=== PATIENT | male | born 1955 | race Caucasian/White ===

== ENCOUNTER → 2017-02-26 | Outpatient (CLI) | payer BC ==
[~2017-02-26] MED LIST: ACET-1256 PO; ACET-24 PO; ASPEC325 PO; IBUP-1050 PO; RXC5 PO
== END | disposition home or self-care (01) ==
LOC: C.LAB1850 08:08
PROVIDERS: ATTEND Urology
DX: Z00.00 Encounter for general adult medical examination without abnormal findings (principal); R97.20 Elevated prostate specific antigen [PSA]

== ENCOUNTER 2017-05-26 06:25 | Inpatient (IN) | payer BC ==
--- NOTE | 2017-05-11 10:54 | PAT Medication Instructions ---
Service Date May 11, 2017. Current Home Medication List Acetaminophen (Tylenol), 1-2 TAB PO Q8 PRN for Pain Ibuprofen (Advil), 400 MG PO Q8 PRN for Pain Medication Instructions For Your Scheduled Surgery - Hold the following medications 10 days prior to surgery per surgeon's instructions: Ibuprofen (Advil), 400 MG PO Q8 PRN for Pain - Take the following medications (if needed) the morning of surgery with a tiny sip of water: Acetaminophen (Tylenol), 1-2 TAB PO Q8 PRN for Pain (may take if needed up to 4 hours prior to surgery) If you have any questions please call us at [phone] or [phone] or [phone]
--- NOTE | 2017-05-11 11:51 | DIAGNOSTIC IMAGING REPORT ---
CHEST 2 VIEWS ROUTINE HISTORY: 61 years-old Male preoperative exam. No acute complaints COMPARISON: None available TECHNIQUE: Frontal and lateral views of the chest FINDINGS: Cardiomediastinal and hilar silhouettes are within normal limits. No pneumothorax, pleural effusion or focal airspace consolidation. There is no overt pulmonary edema. Bones are grossly intact. Cholecystectomy clips are noted. IMPRESSION: No acute cardiopulmonary process. The above report was generated using voice recognition software. It may contain grammatical, syntax or spelling errors. Electronically signed by: Guzman Vasquez M.D. 05/11/2017 11:49 AM Dictated Date/Time: 05/11/2017 11:49 AM
[2017-05-11 12:04] LABS: BASO % 0.2 %; BASO ABS # 0.01 K/uL (0-0.2); COMPLETE YES; EOS % 3.3 %; HEMATOCRIT 40.8 % (42-52); LYMPH % 45.8 %; LYMPH ABS # 1.96 K/uL (1.2-3.4); MEAN CELL VOLUME 91.3 fL (80-100); MEAN CORPUSCULAR HEMOGLOBIN 30.2 pg (25-34); MEAN CORPUSCULAR HGB CONC 33.1 g/dl (32-36); MONO % 13.1 %; NEUT % 37.6 %; PLATELET COUNT 190 K/uL (130-400); RED BLOOD COUNT 4.47 M/uL (4.7-6.1); WHITE BLOOD COUNT 4.28 K/uL (4.8-10.8)
[2017-05-11 12:18] LABS: PROTHROMBIN TIME (PATIENT) 10.2 SECONDS (9.0-12.0)
[2017-05-11 12:38] LABS: BUN/CREATININE RATIO 16.1 (10-20); CALCIUM 9.5 mg/dl (8.5-10.1); CREATININE 1.1 mg/dl (0.60-1.40); POTASSIUM 4.5 mmol/L (3.5-5.1)
--- NOTE | 2017-05-18 18:24 | HISTORY & PHYSICAL EXAMINATION ---
DATE OF ADMISSION: 05/26/2017 CHIEF COMPLAINT: Left hip pain. HISTORY OF PRESENT ILLNESS: The patient is a 61-year-old gentleman who presents for surgical treatment of his left hip. He has got a 5+ year history of increasing left hip pain and discomfort which has gradually gotten worse over time. He continues to try and maintain a high activity level, but having more and more trouble doing this. He has trouble with any prolonged walking. He describes mostly groin and thigh pain. He has difficulty putting his shoes and socks on. He would like to have his hip replaced. PAST MEDICAL HISTORY: Significant for: 1. Prostate biopsy which was negative. 2. Arthritis. PAST SURGICAL HISTORY: Include cholecystectomy. ALLERGIES: None. CURRENT MEDICATIONS: Include intermittent anti-inflammatories. SOCIAL HISTORY: Shows a 61-year-old male. He is . One to 2 drink per week. Fairly active. Does a lot of labor work. FAMILY HISTORY: Noncontributory. REVIEW OF SYSTEMS: Negative for diabetes, neurologic problems, vascular problems, bleeding disorders. Denies any chest pain, no shortness of breath. No history of DVT or PE. PHYSICAL EXAMINATION: GENERAL: Reveals a healthy, pleasant, middle-aged male. He looks to be in good health. HEENT: Benign. NECK: Supple. No lymphadenopathy. LUNGS: Clear to auscultation. HEART: Regular rate and rhythm. ABDOMEN: Soft, nontender, nondistended. EXTREMITIES: Grossly neurovascularly intact except as follows: Examination of left hip and leg reveals the patient walks with a slightly antalgic gait. He has got a very stiff hip. Internal rotation to neutral, external rotation to 20 degrees. He has got moderate pain with hip motion. No knee effusion. Negative straight leg raise. He is neurologically intact. X-RAYS: X-rays of the left hip were reviewed. It shows advanced left hip DJD. He has got complete loss of his joint space. He has got fairly large medial osteophyte. ASSESSMENT: A 61-year-old male with advanced left hip degenerative joint disease. It is becoming less responsive to conservative treatment affecting his quality of life, and he would like to have his left hip placed. PLAN: We are going to take him to the operating room and do a left total hip replacement. The risks and benefits of this procedure were explained to the patient including but not limited to DVT, PE, , infection, neurological injury, vascular injury, bleeding problems, pain, limited range of motion, stiffness, failure to relieve his symptoms, incomplete relief of symptoms, need for further surgery in the future, fracture, leg length inequality, nerve palsy, dislocation, need for revision surgery, etc. The patient understands and desires to proceed and informed consent was obtained. As far as discharge plans, he is going to be discharged home using [facility] home health program. He knows to hold his NSAIDs 10 days preop. COLLINS
[~2017-05-26] VITALS: Ht 177.8 cm; Wt 94.0 kg
[2017-05-26] VITALS (14 sets, daily range): BP systolic 108–132; BP diastolic 63–86; PULSE 57–88; TEMP 36–37; O2SAT 95–100; Ht 177.8 cm; Wt 94.0 kg
[~2017-05-26 06:25] MED LIST changes: -ACET-24 PO; +ACETAMINOPHEN 500 MG TAB PO SCH; -ASPEC325 PO; +CEFAZOLIN 2000 MG/60 ML D5W 60 ML IV SCH; +FAMOTIDINE 20 MG TAB PO SCH; +GABAPENTIN 300 MG CAP PO SCH; +LACTATED RINGER'S 1000ML 1,000 ML IV SCH; +LACTATED RINGER'S 1000ML 500 ML IV ONE; +LACTATED RINGER'S 1000ML IV SCH; +METOCLOPRAMIDE HCL 10 MG TAB PO SCH; -RXC5 PO; +SCOPOLAMINE 1.5 MG TDSY TD SCH; +TRANEXAMIC ACID INJ 1,000 MG in SODIUM CHLORIDE 0.9% 100ML 100 ML IV SCH
[2017-05-26] MEDS ORDERED: BUPIVACAINE 0.5 % 5 MG/1 ML PF 10ML VIAL ONE (06:31)
--- NOTE | 2017-05-26 06:48 | History & Physical Bridge Note ---
H&P Re-Evaluation Bridge Note: I have examined the patient, reviewed the History & Physical and in the interval since the performance of the History & Physical I have noted the following changes of clinical significance: No changes noted
[2017-05-26] MEDS ORDERED: MoRPHine SULFATE PF 1 MG/ML 10 ML AMP/VIAL ONE (08:00)
[2017-05-26] MEDS ORDERED: MIDAZOLAM HCL 1 MG/ML 2ML VIAL ONE ×2 (08:00→09:05)
[2017-05-26] MEDS ORDERED: BACITRACIN 50000 UNIT VIAL ONE (08:36)
[2017-05-26] MEDS ORDERED: BUPIVACAINE/EPINEPHRINE 0.5% MPF 1:200,000 10 ML VIAL ONE ×2 (08:36)
[2017-05-26] MEDS ORDERED: SODIUM CHLORIDE 0.9% 1000ML 1,000 ML IV PRN (08:51)
[2017-05-26] MEDS ORDERED: NALOXONE HCL INJ 0.08 MG in SYRINGE 1.8 ML IV PRN (08:51)
[2017-05-26] MEDS ORDERED: NALOXONE HCL INJ 1 MG in SODIUM CHLORIDE 0.9% 1000ML 1,000 ML IV PRN (08:51)
[2017-05-26] MEDS ORDERED: LACTATED RINGER'S 1000ML 500 ML IV PRN (08:51)
[2017-05-26] MEDS ORDERED: PHENYLEPHRINE 100MCG/ML 5ML SYR IV PRN (09:00)
[2017-05-26] MEDS ORDERED: DiphenhydrAMINE HCL 50 MG/ML VIAL IV PRN (09:00)
[2017-05-26] MEDS ORDERED: MoRPHine SULFATE 2 MG/ML CARP IV PRN (09:00)
[2017-05-26] MEDS ORDERED: EpHEDrine SULFATE INJ 50 MG/ML AMP IV PRN ×2 (09:00)
[2017-05-26] MEDS ORDERED: MoRPHine SULFATE PF 1 MG/ML 10 ML AMP/VIAL EPI PRN (09:00)
[2017-05-26] MEDS ORDERED: MEPERIDINE HCL 25 MG/ML CARP IV PRN ×2 (09:00)
[2017-05-26] MEDS ORDERED: FLUMAZENIL 0.1 MG/1 ML 10 ML VIAL IV PRN (09:00)
[2017-05-26] MEDS ORDERED: NALOXONE HCL 0.4 MG/1 ML VIAL/CARP IV PRN ×2 (09:00)
[2017-05-26] MEDS ORDERED: KETOROLAC TROMETHAMINE 30 MG/ML VIAL IV. PRN (09:00)
[2017-05-26] MEDS ORDERED: NALBUPHINE HCL INJ 10 MG/ML AMP IV PRN (09:00)
[2017-05-26] MEDS ORDERED: HYDROmorphone INJ 2 MG/ML SYR/VIAL IV PRN (09:00)
[2017-05-26] MEDS ORDERED: LABETALOL HCL IV 5 MG/ML 20ML IV PRN (09:00)
[2017-05-26] MEDS ORDERED: ONDANSETRON INJ 2 MG/ML 2 ML VIAL IV PRN ×2 (09:00)
[2017-05-26] MEDS ORDERED: ATROPINE SULFATE 0.1 MG/ML 5ML SYR IV PRN (09:00)
[2017-05-26] MEDS ORDERED: FENTANYL CITRATE INJ 50 MCG/1 ML 2 ML VIAL IV PRN (09:00)
[2017-05-26] MEDS ORDERED: DiphenhydrAMINE HCL 50 MG/ML VIAL ONE (09:05)
[2017-05-26] MEDS ORDERED: PHENYLEPHRINE 100MCG/ML 5ML SYR ONE (09:22)
[2017-05-26] MEDS ORDERED: ONDANSETRON INJ 2 MG/ML 2 ML VIAL ONE (09:22)
[2017-05-26] MEDS ORDERED: PROPOFOL IV EMULSION 10 MG/ML 20 ML VIAL IV ONE ×2 (09:22→10:03)
[2017-05-26] MEDS ORDERED: LIDOCAINE HCL 2% 2 ML VIAL (20MG/ML) ONE (09:22)
[2017-05-26] MEDS ORDERED: EpHEDrine SULFATE INJ 50 MG/ML AMP ONE (09:29)
--- NOTE | 2017-05-26 10:29 | [facility] Post Operative Brief Note ---
Immediate Operative Summary Operative Date May 26, 2017. Pre-Operative Diagnosis Advanced Left Hip Degenerative Joint Disease Post-Operative Diagnosis Advanced Left Hip Degenerative Joint Disease Procedure(s) Performed Left Total Hip Arthroplasty--Uncemented Surgeon Dr. Grissom [employer] Editor Surgeon(s) ERIKA Jones Estimated Blood Loss 250 ml Findings Left Hip DJD Fluids (cc crystalloids) 1700 cc Specimens A. Left Femoral Head Drains None Anesthesia Spinal Complication(s) None Disposition Recovery Room / PACU
[2017-05-26] MEDS ORDERED: BISACODYL 10 MG SUPP PR PRN (10:30)
[2017-05-26] MEDS ORDERED: MAGNESIUM HYDROXIDE SUSP 30 ML UDC PO PRN (10:30)
[2017-05-26] MEDS ORDERED: SILVER SULFADIAZINE 1% CR 50 GM JAR EXT PRN (10:30)
[2017-05-26] MEDS ORDERED: TAMSULOSIN HCL 0.4 MG CAP PO PRN (10:30)
[2017-05-26] MEDS ORDERED: ZOLPIDEM TARTRATE 5 MG TAB PO PRN (10:30)
[2017-05-26] MEDS ORDERED: ALUMINUM/MAGNESIUM/SIMETH (MAALOX MAX) 30 ML UDC PO PRN (10:30)
[2017-05-26] MEDS ORDERED: METOCLOPRAMIDE HCL INJ 5 MG/ML 2 ML VIAL IV PRN (10:30)
--- NOTE | 2017-05-26 10:58 | OPERATIVE REPORT ---
DATE OF OPERATION: 05/26/2017 PREOPERATIVE DIAGNOSIS: Left hip degenerative joint disease. POSTOPERATIVE DIAGNOSIS: Same. PROCEDURE PERFORMED: Left uncemented ceramic on highly cross-linked polyethylene total hip arthroplasty. SURGEON: Johann Grissom M.D. BODY DESIGNER: Sonny Ramirez PA-C. COMPLICATIONS: None. ESTIMATED BLOOD LOSS: 250 mL. FLUID REPLACEMENT: 1700 mL crystalloid fluid replacement. ANESTHESIA: Spinal. DRAINS: None. SPECIMENS: Left femoral head sent for pathology. OPERATIVE INDICATIONS: The patient is a 61-year-old very active gentleman who has had a 5-year history of increasing left hip pain and discomfort that has gotten significantly worse over the past 6 months or so. He had failed conservative treatment. X-rays show advanced left hip DJD. He elected to proceed with operative treatment. OPERATIVE FINDINGS: Operative findings revealed advanced left hip DJD. He had grade 4 [id number] disease of the femoral head and acetabulum. Not a lot of osteophytes around the acetabulum. There was a fairly large medial osteophyte. Small hip joint effusion, some moderate synovitis. OPERATIVE IMPLANTS: Operative implants consisted of: 1. Biomet G7 size 56 mm acetabular shell. 2. A 6.5 cancellous acetabular screws, 1 at 35 mm length and 1 at 25 mm in length. 3. An apex hole eliminator. 4. A Biomet vitamin E enriched highly cross-linked polyethylene liner with a 56 mm outer diameter, 36 mm inner diameter. 5. A DePuy size 13.5 large stature AML femoral stem and with a standard offset. 6. A +5/36 mm ceramic articular ball. OPERATIVE PROCEDURE: The patient taken to the operating room, identified and placed on the operating table in supine position. All contact areas were appropriately padded. IV antibiotics were provided by the anesthesia team. A spinal anesthetic had been implemented in the holding area. Welsh catheter was placed in sterile fashion. The patient placed in the right lateral decubitus position. An axillary roll was placed. Stlberg hip positioner was used for positioning. All contact areas were meticulously padded and the left hip and leg were then prepped and draped in the usual sterile fashion. A posterolateral approach to the left hip was then performed through a curvilinear incision centered over the greater trochanter. Sharp dissection was carried down through the subcutaneous tissues down to the level of the IT band and gluteal fascia. The IT band and gluteal fascia were incised longitudinally in line with skin incision. The underlying greater trochanteric bursa was excised. The piriformis and external rotators were tagged and taken off the posterior aspect of the femur and the femoral head joint capsule. Great care was taken throughout the procedure to protect the sciatic nerve at all times. Posterior capsulotomy was then performed leaving a large flap for later repair. Hip was internally rotated and dislocated. Femoral neck osteotomy cut was made with the final cut 12 mm above the lesser trochanter. Femoral head was removed and sent for pathology. The femur was retracted anteriorly. Attention was then drawn to the acetabulum. The acetabular labrum was excised. The pulvinar fat was excised. Sequential reaming of the acetabulum was then performed beginning with a size 47 and progressing up to 55. A 56 mm Biomet G7 acetabular shell was then placed in about 40 degrees of lateral opening and 20 degrees of anteversion. It was fixed with two 6.5 cancellous acetabular screws. A trial liner was placed. Attention was then drawn to the femur. The proximal femur was entered with a cookie cutter followed by canal finder and lateralizing reamer. Sequential reaming of the femur was then performed beginning with a size 10 and progressing up to a 13. We got pretty good chatter at 13. I broached beginning with a size 10.5 small broach and progressing up to 13.5 large. We got excellent metaphyseal fit. Calcar reamer was used to smoothen off the calcar. We trialed the hip and the +5 articular ball provided full stability and full extension and external rotation and flexion to 90 degrees, internal rotation to over 60 degrees. Leg lengths appeared appropriately. Attention was then drawn toward placement of permanent components. All trial components were removed. The wound was irrigated extensively. An apex hole eliminator was placed. I placed initially a highly cross-linked polyethylene liner, but would not sit quite in and there was some soft tissue impinged and I could not get it to sit right and I felt like I damaged the locking mechanism. Therefore, we got out a vitamin E enriched highly cross-linked polyethylene liner. I made sure all surfaces were completely perfectly exposed and impacted this without difficulty. It sat down nicely. A 13.5 large stature femoral stem was then impacted. A +5/36 mm articular ball was placed. Hip was located and once again found to be stable. Attention was then drawn toward closing. The wound was irrigated with copious amounts of pulsatile lavage solution. I did inject locally with 60 mL of 0.5% Marcaine with epinephrine. The posterior capsule and external rotators were repaired through drill holes in the posterior trochanter with #2 Ti-Cron suture. The IT band and gluteal fascia were then closed with #1 PDS suture in a running fashion with a PDS suture. The subcutaneous tissues closed with 2 layers, the deep layer #1 Vicryl sutures, subcutaneous tissue with 2-0 Dexon suture in a buried interrupted fashion. Skin was closed skin unique. Leg was then cleaned and dried and a sterile dressing of Xeroform, 4 x 4's, sterile ABD pad and foam tape was applied. The patient then transferred to the recovery room in stable condition. The patient tolerated the procedure with no complications. All needle and sponge counts were correct at the end of the operation. I attest to the content of the Intraoperative Record and any orders documented therein. Any exception s are noted below.
--- NOTE | 2017-05-26 11:04 | DIAGNOSTIC IMAGING REPORT ---
LEFT PELVIS/UNILATERAL HIP 1 VIEW CLINICAL HISTORY: 61 years-old Male presenting with left degenerative joint disease. TECHNIQUE: Frontal view of the pelvis and frontal and crosstable lateral views of the left hip were obtained. COMPARISON: 02/19/2017. FINDINGS: Interval total left hip arthroplasty. Intra-articular and soft tissue emphysema with overlying skin unique noted. No acute fracture or hardware convocation. Surgical clip projects over the pelvis. Multiple pelvic phleboliths. IMPRESSION: Expected postsurgical changes status post total left hip arthroplasty. Electronically signed by: David Mulligan M.D. 05/26/2017 11:03 AM Dictated Date/Time: 05/26/2017 11:02 AM
--- NOTE | 2017-05-26 11:26 | Anesthesiology Progress Note ---
Anesthesia Post Op Note Date & Time May 26, 2017 at 11:25 Vital Signs Pain Intensity: 0 Vital Signs Past 12 Hours Date Time Temp Pulse Resp B/P (MAP) Pulse Ox O2 Delivery O2 Flow Rate FiO2 05/26/17 11:05 36.7 72 16 132/78 100 Nasal Cannula 2 05/26/17 10:55 76 16 127/71 100 Nasal Cannula 2 05/26/17 10:45 77 16 117/68 100 Oxymask 10 05/26/17 10:35 79 16 124/66 100 Oxymask 10 05/26/17 10:29 36.4 78 16 114/64 100 Oxymask 10 05/26/17 06:35 36.5 68 20 128/86 98 Room Air Notes Mental Status: alert / awake / arousable, participated in evaluation Pt Amnestic to Procedure: Yes Nausea / Vomiting: adequately controlled Pain: adequately controlled Airway Patency, RR, SpO2: stable & adequate BP & HR: stable & adequate Hydration State: stable & adequate Neuraxial Anesthesia: was administered, sensory block is resolving Anesthetic Complications: no major complications apparent
[2017-05-26] MEDS: FERROUS GLUCONATE 324 MG TAB PO SCH ×2 (12:30→17:54)
[2017-05-26] MEDS: D5W AND 1/2NSS + 20MEQ KCL 1,000 ML IV SCH ×2 (12:37→19:59)
[2017-05-26] MEDS: KETOROLAC TROMETHAMINE 30 MG/ML VIAL IV. SCH ×2 (13:44→19:59)
[2017-05-26] MEDS: ACETAMINOPHEN 500 MG TAB PO SCH ×2 (13:44→21:53)
[2017-05-26] MEDS: CHECK SCOPOLAMINE PATCH PLACEMENT SCH ×2 (15:48→23:35)
[2017-05-26] MEDS: CEFAZOLIN IV 2,000 MG in DEXTROSE 5% 50ML 50 ML IV SCH (17:06)
[2017-05-26] MEDS ORDERED: TRANEXAMIC ACID INJ 1,000 MG in SODIUM CHLORIDE 0.9% 100ML 100 ML IV ONE (18:00)
[2017-05-26] MEDS: DOCUSATE SODIUM 100 MG CAP PO SCH (21:51)
[2017-05-26] MEDS: ASPIRIN 325 MG ECTAB PO SCH (21:51)
[2017-05-26] MEDS: SENNA 8.6 MG TAB PO SCH (21:51)
[2017-05-27] VITALS (8 sets, daily range): BP systolic 102–131; BP diastolic 61–74; PULSE 73–95; TEMP 36.7–37.3; O2SAT 94–97
[2017-05-27] MEDS: CEFAZOLIN IV 2,000 MG in DEXTROSE 5% 50ML 50 ML IV SCH (01:34)
[2017-05-27] MEDS: KETOROLAC TROMETHAMINE 30 MG/ML VIAL IV. SCH ×4 (01:34→20:40)
[2017-05-27] MEDS ORDERED: MoRPHine SULFATE 2 MG/ML CARP IV PRN (02:45)
[2017-05-27] MEDS ORDERED: NO NARCOTICS OR SEDATIVES SCH (02:45)
[2017-05-27] MEDS ORDERED: DC INTRASPINAL MORPHINE SCH (02:45)
[2017-05-27] MEDS ORDERED: DiphenhydrAMINE HCL 50 MG/ML VIAL IV PRN (02:45)
[2017-05-27] MEDS ORDERED: ONDANSETRON INJ 2 MG/ML 2 ML VIAL IV PRN (02:45)
[2017-05-27] MEDS ORDERED: OXYCODONE HCL IR 5 MG TAB (IMMEDIATE RELEASE) PO PRN (02:45)
[2017-05-27] MEDS ORDERED: ZOLPIDEM TARTRATE 5 MG TAB PO PRN (02:45)
[2017-05-27] MEDS: D5W AND 1/2NSS + 20MEQ KCL 1,000 ML IV SCH (04:29)
[2017-05-27] MEDS: ACETAMINOPHEN 500 MG TAB PO SCH ×3 (05:32→22:15)
[2017-05-27 05:35] LABS: BASO % 0.2 %; BASO ABS # 0.01 K/uL (0-0.2); COMPLETE YES; EOS % 1.8 %; HEMATOCRIT 35.3 % (42-52); IG% 0.2 %; LYMPH ABS # 1.54 K/uL (1.2-3.4); MEAN CELL VOLUME 91.7 fL (80-100); MEAN CORPUSCULAR HEMOGLOBIN 29.4 pg (25-34); MEAN PLATELET VOLUME 10.9 fL (7.4-10.4); MONO % 11.7 %; NEUT % 61.1 %; PLATELET COUNT 177 K/uL (130-400); RED BLOOD COUNT 3.85 M/uL (4.7-6.1); WHITE BLOOD COUNT 6.16 K/uL (4.8-10.8)
[2017-05-27 06:16] LABS: CALCIUM 8.1 mg/dl (8.5-10.1); POTASSIUM 3.8 mmol/L (3.5-5.1)
--- NOTE | 2017-05-27 07:58 | Anesthesiology Progress Note ---
Anesthesia Post Op Note Date & Time May 27, 2017 at 07:57 Vital Signs Pain Intensity: 0.0 Vital Signs Past 12 Hours Date Time Temp Pulse Resp B/P (MAP) Pulse Ox O2 Delivery O2 Flow Rate FiO2 05/27/17 07:20 36.7 73 16 102/61 (75) 94 Room Air 05/27/17 07:00 Room Air 05/27/17 03:30 17 96 05/27/17 03:08 37.3 85 16 109/66 (80) 94 Room Air 05/27/17 02:30 16 96 05/27/17 01:30 16 97 05/27/17 00:30 17 96 05/26/17 23:45 Room Air 05/26/17 23:45 16 99 05/26/17 23:16 37.0 84 16 108/63 (78) 99 Room Air 05/26/17 22:32 18 96 Notes Mental Status: alert / awake / arousable, participated in evaluation Pt Amnestic to Procedure: Yes Nausea / Vomiting: adequately controlled Pain: adequately controlled Airway Patency, RR, SpO2: stable & adequate BP & HR: stable & adequate Hydration State: stable & adequate Neuraxial Anesthesia: was administered, sensory block resolved Anesthetic Complications: no major complications apparent
[2017-05-27] MEDS: CHECK SCOPOLAMINE PATCH PLACEMENT SCH ×2 (08:06→15:36)
[2017-05-27] MEDS: DOCUSATE SODIUM 100 MG CAP PO SCH ×2 (08:26→20:41)
[2017-05-27] MEDS: MULTIVITAMIN TAB PO SCH (08:26)
[2017-05-27] MEDS: TAPENTADOL ER 50 MG TABCR PO SCH ×2 (08:26→20:40)
[2017-05-27] MEDS: FERROUS GLUCONATE 324 MG TAB PO SCH ×3 (08:26→17:45)
[2017-05-27] MEDS: PANTOprazole SOD 40 MG TAB PO SCH (08:26)
[2017-05-27] MEDS: ASPIRIN 325 MG ECTAB PO SCH ×2 (08:26→20:40)
--- NOTE | 2017-05-27 14:58 | PROGRESS NOTE ---
DATE: 05/27/2017 SUBJECTIVE: A 61-year-old gentleman postop day #1 from a left total hip replacement. He is doing well. Really not have much pain at all. Therapy went pretty well. Denies any chest pain or shortness of breath. Not feeling dizzy or lightheaded. OBJECTIVE: VITAL SIGNS: Temperature is 36.7. Vital signs stable. GENERAL: Physical examination reveals a pleasant, middle-aged male. He is sitting up in bed and looks pretty comfortable. EXTREMITIES: Examination of the left leg reveals the leg to be well aligned. His hip is located. Leg lengths are equal. He can dorsiflex and plantarflex his foot appropriately. He is neurologically intact. LABORATORY DATA: Hemoglobin 11.3. Hematocrit 35.3. Electrolytes are stable. ASSESSMENT: A 61-year-old gentleman postop day #1 from left total hip replacement, doing well. Hip is located. His pain is controlled. He is neurologically intact. PLAN: 1. DVT prophylaxis including thigh-high TEDs, SCDs, and aspirin twice a day. 2. PT/OT. Weight bear as tolerated. Left total hip protocol. 3. Pain control, doing pretty well with current pain regimen. Really has minimal pain. 4. Disposition: Plan to be discharged to home with home health once adequately recovered.
[2017-05-27] MEDS: SENNA 8.6 MG TAB PO SCH (20:41)
[2017-05-27] MEDS ORDERED: ACET-24 PO (20:51)
[2017-05-27] MEDS ORDERED: ASPEC325 PO (20:51)
[2017-05-27] MEDS ORDERED: RXC5 PO (20:51)
--- NOTE | 2017-05-27 20:54 | Discharge Instructions ---
Discharge Instructions Date of Service May 27, 2017. Admission Reason for Admission: Left Hip Degenerative Joint Disease Discharge Discharge Diagnosis / Problem: Left Hip Replacement Discharge Goals Goal(s): Decrease discomfort, Improve function, Increase independence, Improve disease control, Therapeutic intervention Activity Recommendations Activity Limitations: per Instructions/Follow-up section (Total Hip Precautions ) Weightbearing Status: Left weightbearing . Instructions / Follow-Up Instructions / Follow-Up ACTIVITY RECOMMENDATIONS: Physical Therapy: * Aggressive physical therapy is not usually needed. You will learn to take care of yourself safely and walk. * Follow the "Hip Precautions Instructions." * In some cases, the social insurance specialist at the hospital will arrange to have a therapist come to your house for the first couple of weeks to help you learn these skills. * You need to practice on your own or with the help of a family member as needed. * When you learn these skills, most of the therapy can be done on your own. Home Exercise: * You were shown a series of exercises in the hospital. Do these exercises three to four times each day including the exercises you were shown in physical therapy. Walking: * Get up and walk several times each day. For the first four weeks, try not to stand or walk for more than one hour at a time. If you do stand or walk for more than one hour, you will not hurt anything, but your leg will likely swell. * As you feel comfortable, you may change from the walker or crutches to a cane and then to independent walking. MEDICATIONS: New Medicine: * You will likely be taking one or more of these medicines: 1. Oxycodone - Take, as directed, when you need it, every four to six hours to control your pain. 2. Aspirin - Thins your blood to lessen the chance of forming a blood clot. * The most common side effects of pain medicine and iron are nausea and constipation. If nausea or constipation is too much of a problem or if you have any questions about your new medicines or doses, call [facility] at [phone]. We will try to help you manage these issues. VERY IMPORTANT TO READ AND REVIEW" Pain: * The immediate post-operative period after hip replacement surgery is often quite painful. * You are given a prescription for pain medicine. You should take it, as directed, when you need it, especially before physical therapy and before going to bed. Pain that interferes with sleep is very common and can last several months. * You will likely need pain medicine for the first two to four weeks. It will not stop all of the pain. The pain will lessen and as you feel better, you may change to milder pain medicine such as Tylenol. * The most common side effects of pain medicine are nausea and constipation, so don't take more than you need. SPECIAL CARE INSTRUCTIONS: TEDs/Elastic Stockings: * The white elastic stockings help limit swelling and prevent blood clots from forming in your legs. The more you wear them, the more they work. * Wear them for six weeks. Prevention of Infection: * Take antibiotics one hour before any dental cleaning, dental work, urological procedure, gastrointestinal procedure or any invasive surgery in order to prevent your new joint from getting infected. * You may get the antibiotics from the doctor performing the procedure or you may call our office at before and we will call in a prescription to the pharmacy of your choice. Things to Watch For: * Drainage from the incision site that occurs more than one week after your surgery. * Severely increased leg pain or swelling. * Increased redness at the incision site. * Fever above 102 degrees Fahrenheit. * Unusual chest pain or shortness of breath. * Unusual pain or burning with urination. Call [facility] at with any of the above problems or if you have any questions about your medicines or recovery. FOLLOW UP VISIT: Make an appointment to see your doctor for approximately two weeks after surgery for a progress check and staple removal by calling the office at . Current Hospital Diet Patient's current hospital diet: Regular Diet Discharge Diet Recommended Diet: Regular Diet Procedures Procedures Performed: Left Total Hip Arthroplasty--Uncemented Pending Studies Studies pending at discharge: no Medical Emergencies . Who to Call and When: Medical Emergencies: If at any time you feel your situation is an emergency, please call 529 immediately. . Non-Emergent Contact Non-Emergency issues call your: Surgeon . "Provider Documentation" section prepared by Johann Grissom. . VTE Core Measure Inpt VTE Proph given/why not?: Other Anticoagulation, T.E.D. Stockings, SCD's
[2017-05-28] MEDS: CHECK SCOPOLAMINE PATCH PLACEMENT SCH (00:12)
[2017-05-28] MEDS: KETOROLAC TROMETHAMINE 30 MG/ML VIAL IV. SCH ×3 (02:11→07:25)
[2017-05-28] MEDS: ACETAMINOPHEN 500 MG TAB PO SCH (05:44)
[2017-05-28 05:55] VITALS: BP 125/74; PULSE 78; TEMP 36.5; O2SAT 95
[2017-05-28] MEDS: FERROUS GLUCONATE 324 MG TAB PO SCH ×2 (07:19→12:30)
[2017-05-28] MEDS: PANTOprazole SOD 40 MG TAB PO SCH (07:19)
[2017-05-28] MEDS: DOCUSATE SODIUM 100 MG CAP PO SCH (07:19)
[2017-05-28] MEDS: ASPIRIN 325 MG ECTAB PO SCH (07:20)
[2017-05-28] MEDS: MULTIVITAMIN TAB PO SCH (07:20)
[2017-05-28] MEDS: TAPENTADOL ER 50 MG TABCR PO SCH (07:22)
[2017-05-28 07:30] VITALS: BP 122/78; PULSE 80; TEMP 36.8; O2SAT 96
[2017-05-28 07:56] VITALS: BP 125/74; PULSE 78; TEMP 36.5; O2SAT 95
[2017-05-28 08:56] VITALS: O2SAT 96
--- NOTE | 2017-05-28 12:14 | PROGRESS NOTE ---
DATE: 05/28/2017 DATE: 05/28/2017 SUBJECTIVE: A 61-year-old gentleman postop day 2 from a left total hip replacement. He is doing well. Pain is very well controlled. Denies any chest pain or shortness of breath. Not feeling dizzy or lightheaded. Therapy has gone well. OBJECTIVE: VITAL SIGNS: Temperature is 36.5. Vital signs stable. PHYSICAL EXAMINATION: GENERAL: Reveals a pleasant, middle-aged male. He is sitting up in bed and looks pretty comfortable. LUNGS: Clear to auscultation. HEART: Regular rate and rhythm. ABDOMEN: Soft, nontender, nondistended. EXTREMITY EXAMINATION: Grossly neurovascularly intact except as follows: Examination of left hip and leg reveals the dressing to be clean, dry and intact. Thigh is soft and supple. His hip is located. He is neurologically intact. ASSESSMENT: A 61-year-old gentleman postop day 2 from left total hip replacement, doing well. Pain is controlled. Hip is located. He is neurologically intact. PLAN: 1. DVT prophylaxis including thigh-high TEDs, SCDs, and aspirin. 2. PT/OT. Weight bear as tolerated. Left total hip protocol. 3. Pain control. Doing well with current pain regimen. We will limit narcotics as much as possible. 4. Disposition. Plan to discharge to home with home health once recovered.
--- NOTE | 2017-06-02 15:44 | DISCHARGE SUMMARY ---
ADMITTING PHYSICIAN AND SURGEON: Dr. Grissom. ADMITTING DIAGNOSIS: Left hip degenerative joint disease. SURGERY PERFORMED: Left total hip arthroplasty. SECONDARY DIAGNOSES: Include a prostate biopsy and arthritis. CONSULTS: None obtained. HISTORY AND PHYSICAL EXAMINATION: Well documented in the patient's chart. HOSPITAL COURSE: The patient was admitted on 05/26/2017 and underwent total hip arthroplasty. He tolerated the procedure well. There were no complications. He was transferred to the PACU postoperatively and later to the orthopedic floor for further care. He was given Ancef for antibiotic prophylaxis, ADALBERTO stockings, SCDs and aspirin for DVT prophylaxis. Hemoglobin, hematocrit and vital signs were monitored during his hospital stay and remained stable. He did not require any blood transfusions. There were no complications. By postoperative day #2, he was tolerating a general diet. Pain was controlled with oral pain medicine. He was participating in physical therapy and had no signs or symptoms of deep vein thrombosis. On postoperative day #2, he was discharged home, set up with home health services, given printed discharge instructions including the prescriptions for extra strength Tylenol, aspirin 325 mg b.i.d., and oxycodone. Continue home medicines with the exception of home dose of Tylenol, which was changed. Continue physical therapy, weightbearing as tolerated, ADALBERTO stockings, total hip precautions and follow up in 10-12 days or sooner if there are any problems or concerns.
== END 2017-05-28 13:10 | disposition home health service (06) | DRG 470 ==
LOC: C.ACU 06:25 → C.3E 06:45 → ENRESERV 10:53
PROVIDERS: ADMIT Orthopaedic Surgery Sports Medicine; ATTEND Orthopaedic Surgery Sports Medicine
PROC: 0SRB04A Replacement of Left Hip Joint with Ceramic on Polyethylene Synthetic Substitute, Uncemented, Open Approach (ICD-10-PCS; principal; 2017-05-26 08:45)
DX: M16.12 Unilateral primary osteoarthritis, left hip (principal); E66.9 Obesity, unspecified; Z68.29 Body mass index [BMI] 29.0-29.9, adult; Z79.899 Other long term (current) drug therapy; Z79.1 Long term (current) use of non-steroidal anti-inflammatories (NSAID)

== ENCOUNTER → 2017-10-14 | Outpatient (CLI) | payer BC ==
[~2017-10-14] MED LIST changes: -ACET-1256 PO; +ACET-24 PO; -ACETAMINOPHEN 500 MG TAB PO SCH; +ASPEC325 PO; -CEFAZOLIN 2000 MG/60 ML D5W 60 ML IV SCH; -FAMOTIDINE 20 MG TAB PO SCH; -GABAPENTIN 300 MG CAP PO SCH; -LACTATED RINGER'S 1000ML 1,000 ML IV SCH; -LACTATED RINGER'S 1000ML 500 ML IV ONE; -LACTATED RINGER'S 1000ML IV SCH; -METOCLOPRAMIDE HCL 10 MG TAB PO SCH; +RXC5 PO; -SCOPOLAMINE 1.5 MG TDSY TD SCH; -TRANEXAMIC ACID INJ 1,000 MG in SODIUM CHLORIDE 0.9% 100ML 100 ML IV SCH
== END | disposition home or self-care (01) ==
LOC: C.LAB1850 07:03
PROVIDERS: ATTEND Urology
DX: R97.20 Elevated prostate specific antigen [PSA] (principal)

== ENCOUNTER → 2017-10-15 | Outpatient (CLI) | payer BC | END | disposition home or self-care (01) | LOC: C.LABSPEC 16:48 | PROVIDERS: ATTEND Urology | DX: N40.0 Benign prostatic hyperplasia without lower urinary tract symptoms (principal) ==

== ENCOUNTER 2025-08-22 10:17 | Inpatient (IN) ==
--- NOTE | 2025-08-11 11:10 | Anesthesiology Consultation ---
Date of Service August 11, 2025 Assessment & Plan (1) Encounter for pre-operative examination: Infectious disease screening: Per assessment on 08/11/25- No known recent infectious disease contacts or current infectious disease symptoms. Chart Review Chart Review: Acceptable Risk for Surgery and Patient NOT seen in Pre Admission Testing History Surgery Operation Date: 08/22/25 11:05 Proposed Procedures p Robotic assisted Laparoscopic Left Partial Nephrectomy - Servando Ortiz MD Height/Weight Height: 5 ft 10.5 in Weight: 97.069 kg Allergies Allergy/AdvReac Type Severity Reaction Status Date / Time No Known Allergies Allergy Verified 08/11/25 10:15 Medications Home Medications Medication Instructions Recorded Confirmed Last Taken tamsulosin 0.4 mg capsule 0.4 mg PO HS 08/11/25 08/11/25 Unknown Past Medical History Medical History Anemia, mild BPH (benign prostatic hyperplasia) History of COVID-19 ~2020/early 2021: flu-like symptoms, resolved History of prostate cancer Dx 05/2024, monitoring by urology Hx of Lyme disease 07/2025, s/p treatment Renal mass, left Past Family History Family History Mother Lung cancer Brother Prostate cancer, Onset Age: 75 Other No family history of adverse response to anesthesia Past Surgical History Surgical History History of cholecystectomy Lap History of colonoscopy (2023) Hx of prostate biopsy Hx of wisdom tooth extraction S/P hip replacement (2016) Left Social History Smoking Status: Never smoker Do You Dip or Chew Tobacco: No Hx Alcohol Use: Yes Alcohol type: beer alcohol intake frequency: a few times a month Hx Substance Use: No substance use type: does not use Lab Results Anesthesia Preop Results Results Anesthesia Widget: WBC 4.44 K/ul (4.8-10.8) L 08/03/25 Hgb 13.3 g/dl (14.0-18.0) L 08/03/25 Hct 39.2 % (42.0-52.0) L 08/03/25 Plt 182 K/uL (130-400) 08/03/25 Na 143 mmol/L (136-145) 08/03/25 K 4.3 mmol/L (3.5-5.1) 08/03/25 Cl 108 mmol/L (98-107) H 08/03/25 CO2 29 mmol/L (21-32) 08/03/25 BUN 16 mg/dl (6-23) 08/03/25 Creat 0.99 mg/dl (0.6-1.4) 08/03/25 Glucose Level 91 mg/dl (70-99(Fasting)) 08/03/25 Testing Laboratory Results Urine culture 08/03/25: No growth Electrocardiogram Date: 08/03/25 NSR at 60bpm. "Normal ECG" Chest X-Ray Date: 08/03/25 FINDINGS: Heart size and pulmonary vasculature are normal. No consolidation or pleural effusion. IMPRESSION: No acute findings.
[2025-08-22] MEDS ORDERED: PROPOFOL IV EMULSION 10 MG/ML 20 ML VIAL IV ONE (11:05)
[2025-08-22] MEDS ORDERED: DEXAMETHASONE SOD INJ 4 MG/ML VIAL ONE (11:05)
[2025-08-22] MEDS ORDERED: LIDOCAINE 2% 2 ML VIAL/AMP(20MG/ML) INFIL ONE (11:05)
[2025-08-22] MEDS ORDERED: ROCURONIUM BROMIDE 10 MG/ML 5 ML VIAL IV ONE ×2 (11:05→13:41)
[2025-08-22] MEDS ORDERED: ONDANSETRON INJ 2 MG/ML 2 ML VIAL ONE (11:05)
[2025-08-22] MEDS ORDERED: MIDAZOLAM HCL 1 MG/ML 2ML VIAL ONE (11:06)
[2025-08-22] MEDS: LR 15ML/HR IV SCH (11:09)
--- NOTE | 2025-08-22 11:31 | History & Physical Report ---
Date of Service August 22, 2025 Assessment & Plan (1) Renal mass, left: Plan: Solid, enhancing left renal masssuspected renal cell carcinoma Presenting today for surgical management via left robotic partial nephrectomy. Risks, benefits, expectations reviewed History of Present Illness Primary Care Provider: Davis Elizabeth MD 69 gentleman, enhancing renal mass in the lower pole, lateral, 50% endophytic/50% exophytic presenting today for robotic left partial nephrectomy Allergies Allergy/AdvReac Type Severity Reaction Status Date / Time No Known Allergies Allergy Verified 08/22/25 10:30 Home Medications Medication Instructions Recorded Confirmed Type tamsulosin 0.4 mg capsule 0.4 mg PO HS 08/11/25 08/22/25 History Past Med/Surg History Problem List Encounter for pre-operative examination Renal mass, left Prostate cancer Enlarged prostate without lower urinary tract symptoms (luts) High prostate specific antigen (PSA) BPH (benign prostatic hyperplasia) Medical History Anemia, mild BPH (benign prostatic hyperplasia) History of COVID-19 ~2020/early 2021: flu-like symptoms, resolved History of prostate cancer Dx 05/2024, monitoring by urology Hx of Lyme disease 07/2025, s/p treatment Renal mass, left Surgical History History of cholecystectomy Lap History of colonoscopy (2023) Hx of prostate biopsy Hx of wisdom tooth extraction S/P hip replacement (2016) Left Family History Mother Lung cancer Brother Prostate cancer, Onset Age: 75 Other No family history of adverse response to anesthesia Social History Smoking Status: Never smoker Second Hand Exposure: No; Do You Dip or Chew Tobacco: No; Tobacco Cessation Education Requested by Patient: No Hx Alcohol Use: Yes Alcohol type: beer Hx Substance Use: No Preferred Language: Tamazight Communication Ability: Effective Hearing Ability: Normal Court Messenger Required: No Beliefs That Will Affect Care: None marital status: Current Living Situation: Spouse current occupational status: retired Other Information That Helps Us Care for You: No Feels Safe at Home: Yes Safety Concerns: Feels Safe At This Time Childhood Exposure to Second-Hand Smoke: Yes Assistive Devices: None Physical Exam Constitutional: well developed and well nourished Neck: neck nontender Respiratory: normal respiratory effort; no respiratory distress and does not use accessory muscles Cardiovascular: Rate/Rhythm: regular rate Vessels: radial pulses present Extremities: no edema Gastrointestinal (Abdomen): Inspection/Auscultation: abdomen normal to inspection Percussion/Palpation: abdomen soft; abdomen nontender and no guarding Musculoskeletal: Head/Neck/Chest: normocephalic and head atraumatic Extremities: extremities normal to inspection Skin: no rashes and no lesions Trauma: no evidence of skin trauma Neurologic: awake; not obtunded Speech / Cognition: normal speech Motor/Sensory: no tremor Psychiatric: Orientation: alert and oriented x 3 Genitourinary: no CVA tenderness Lymphatic: no lymphadenopathy Results & Data Vital Signs (Past 12 Hours) Vital Signs Temp Pulse Resp BP Pulse Ox O2 Del Method 08/22/25 10:33 36.6 C 64 20 142/80 H 100 Room Air
[2025-08-22] MEDS ORDERED: PHENYLEPHRINE HCL 10 MG/ML VIAL ONE (11:46)
[2025-08-22] MEDS ORDERED: ONDANSETRON INJ 2 MG/ML 2 ML VIAL IV PRN ×2 (12:01→16:55)
[2025-08-22] MEDS ORDERED: ATROPINE SULFATE 0.1 MG/ML 10ML SYR IV PRN (12:01)
[2025-08-22] MEDS ORDERED: SUGAMMADEX SODIUM 200 MG/2 ML VIAL IV ONE (14:59)
[2025-08-22] MEDS: BUPIVACAINE 0.5 % 5 MG/1 ML MPF 30ML VIAL ONE (15:30)
[2025-08-22] MEDS: BUPIVACAINE LIPOSOME 1.3% 266 MG/20 ML VIAL ONE (15:31)
[2025-08-22] MEDS: MANNITOL 25% 12.5 GM/50 ML VIAL IV ONE (15:33)
--- NOTE | 2025-08-22 15:49 | Operative Report ---
PG Post Operative Report Pre & Post Diagnosis Operation Date: 08/22/25 11:50 Pre-Op Diagnosis: Renal mass, left Post-Op Diagnosis: Renal mass, left I identified the patient and participated in the time-out.: Yes Procedure Operation Date: 08/22/25 11:50 Actual Procedures p Robotic Assisted Laparoscopic Left Partial Nephrectomy(Left) - Servando Ortiz MD Surgeon Servando Ortiz MD Head Of Ict Dv-lwonoal-DfDr. Alex Naqvi; Head Of Ict Alexa MYERS Estimated Blood Loss 100 Findings Consistent with Post-Op Diagnosis Specimens Left renal masssuspected renal cell carcinoma with overlying fat Description of Procedure Patient was identified in the preoperative holding area, appropriate informed consents reviewed and completed the patient was transported the operating suite. Upon arrival he received appropriate antibiotics and general anesthesia. He was placed in a [id number] left side up lateral decubitus position with the bed flexed. He was padded and braced appropriately. His imaging was on the screens in the room. To begin the laparoscopic portion of the case we passed a Veress needle into the left upper quadrant and insufflated 15 mmHg. I marked tentative port sites with a 12 mm resident programs assistant port located approximately 8 cm above the umbilicus, a 5 mm resident programs assistant port located approximately 4 cm below the umbilicus. I marked for 8 mm ports down the lateral border of the rectus muscle beginning with the superiormost port 2 fingerbreadths below the costal margin subsequent port approximately 6 to 7 cm inferior to the 1 above it. I entered initially at the second the highest 8 mm port with a 0 degree lens and visual obturator. Inspection revealed a healthy abdominal wall without significant adhesions. Of note, he does appear to have a recurrence of an umbilical hernia, I did not address this today. After confirming a clear abdominal wall I placed all other ports without difficulty. We then docked the robot. I incised the white line of Toldt and medialized the colon without incident. I was able to identify a protuberant mass from the left lower pole of the kidney consistent with the mass seen on preoperative imaging. We dissected inferior to this and then I was able to dissect medially until I identified the ureter and the gonadal vein and dissected onto the psoas muscle. Utilizing a window lateral to the gonadal but inferior to the ureter I was able to elevate the kidney. This allowed further dissection up the superior margin of the gonadal vein until I encountered the inferior aspect of the renal vein. The renal vein itself was angled from an inferior to superior type position but clearly protruding from the kidney. I was able to skeletonize this and expose it circumferentially. There was an arterial branch just superior to the vein and a second branch which appeared to be posterior and superior further. We are able to dissect around these and then traced them back to a common arterial branch protruding from the aorta. After circumferentially clearing these areas I turned my attention back to the kidney. I first performed a laparoscopic ultrasound to confirm the location of the mass and then I incised Gerota's fascia and approximately the mid pole from medial to lateral. Of note, he has numerous large veins throughout Gerota's fascia and this made the dissection somewhat tedious in this area. We were able to control these and ultimately expose healthy appearing renal capsule around the border of the mass circumferentially. The mass itself was easily identified and differentiated from the normal-appearing renal parenchyma. After complete exposure I performed repeat laparoscopic ultrasound confirming my intended target for incision and anticipated depth of resection. I did karey the capsule with electrocautery at this time. I preposition 2 renorrhaphy stitches into the abdomen and position them out of my immediate [id number]. We then advanced 3 robotic bulldog clamps into the abdomen and clipped them to some of Gerota's fat out of the immediate field of dissection. The first was a curved short clamp, the second and a straight short clamp, the third a long straight clamp. We performed a timeout to ensure everyone in the room was prepared and then we placed the short curved clamp across the common renal artery. The short straight clamp was additionally placed just distal to the curved. The long straight was placed across the common renal vein and time was marked. Utilizing sharp dissection and some electrocautery we incised the capsule circumferentially and began to work her way down through the renal parenchyma with care to avoid encroachment upon the main mass. After reaching sinus fat, I was able to turn laterally and elevate the mass out of the defect. We completed the dissection without violating the mass at all. The mass was freed and pushed into the upper abdomen slightly further away from the defect to allow renorrhaphy without interruption. Of note, clamping was excellent throughout and there was minimal bleeding. At that time needle drivers were exchanged and the 2 previously placed stitches were used to close the renal defect utilizing a sliding clip technique. 7 passes in total close the defect without issue. There appeared to be excellent hemostasis and good pressure on the defect. We then unclamped the kidney and the reverse order that the initial clamps were placed, first removing the venous clamp followed by the distal arterial clamp and ultimately the proximal arterial clamp. Time was minutes of warm ischemia time was noted. There was an immediate pinking of the renal parenchyma and there was no bleeding from the defect. A sheet of Surgicel was placed across the defect and flattened followed by coating of Tisseel to recreate a capsule. Gerota's fascia was reapproximated utilizing another 2 oh V-Loc suture. This completely cover the defect. A drain was guided in through the inferior most robotic port. A laparoscopic bag was utilized to collect the specimen and ultimately prepared for extraction to the second to lowest robotic port. The 12 mm resident programs assistant port was closed utilizing a Elvis-Constance device and a 0 Vicryl. The 5 mm port was closed directly with a 4-0 Monocryl suture. The 2 superiormost robotic ports were also closed with 4-0 Monocryl. The specimen was extracted after expansion of the extraction port. This visibly incorporated a portion of the rectus, the location of the port did not exactly reach the lateral border, after extracting, I was able to reapproximate the posterior rectus sheath followed by the anterior rectus sheath. The posterior was reapproximated utilizing 0 Vicryl and the anterior with a 0 PDS. The muscle layer was infiltrated with a combination of Exparel and Marcaine. All incisions were infiltrated with this through the skin. After closing the skin on the 2 remaining ports Dermabond was placed over all incisions and the drain sutured in place with a 3-0 nylon. He was reversed of anesthesia and taken to the recovery room in stable condition. There were no complications. The specimen was passed off the table for pathology to confirm the suspected diagnosis of renal cell carcinoma. Dr. Alex Naqvi assisted throughout the procedure and including the mir portions of the clamp time and resection of tumor and renorrhaphy. Alexa Johnson assisted for all other aspects of the case from incision to closure. I attest to the content of the Intraoperative Record and any orders documented therein. Any exceptions are noted below.
[2025-08-22] MEDS: HYDROmorphone INJ 2 MG/ML SYR/VIAL IV PRN (15:51)
[2025-08-22 16:00] LABS: Hematocrit (blood only) 39.4 % (42.0-52.0); Hemoglobin 13.3 g/dL (14.0-18.0); Immature Granulocytes # (auto) 0.05 K/uL (0.01-0.20); Immature Granulocytes % (auto) 0.4 %; Mean Corpuscular Hemoglobin 30.5 pg (25.0-34.0); Mean Corpuscular Volume 90.4 fL (80.0-100.0); Platelet Count 175 K/uL (130-400); RDW Standard Deviation 47.4 fL (36.4-46.3); Red Blood Count 4.36 M/uL (4.70-6.10); White Blood Count 13.05 K/ul (4.8-10.8)
[2025-08-22 16:16] LABS: Anion Gap 8.0 (3-11); Blood Urea Nitrogen 18.0 mg/dl (6-23); Calcium 9.0 mg/dl (8.6-10.3); Carbon Dioxide 26.0 mmol/L (21-32); Chloride 106.0 mmol/L (98-107); Creatinine Clr Calc Pharmacy 78.3 ml/min; Glucose 139.0 mg/dl (70-99(Fasting)); Potassium 4.0 mmol/L (3.5-5.1); Sodium 140.0 mmol/L (136-145)
[2025-08-22] MEDS ORDERED: HYDROmorphone INJ 0.5 MG/0.5 ML SYR IV PRN ×2 (16:55)
[2025-08-22] MEDS: ACETAMINOPHEN 325 MG TAB PO SCH (17:35)
[2025-08-22] MEDS: SODIUM CHLORIDE 0.9% 1,000 ML IV SCH (17:37)
--- NOTE | 2025-08-22 19:06 | Anesthesiology Progress Note ---
Date of Service August 22, 2025 Anesthesia Post Procedure Vital Signs Vital Signs: Temp Pulse Pulse Resp BP Pulse Ox O2 Del Method 08/22/25 18:47 36.6 C 92 H 16 120/72 97 Nasal Cannula 08/22/25 18:12 36.4 C L 95 H 16 118/77 96 Nasal Cannula 08/22/25 17:25 36.6 C 98 H 16 117/80 97 Nasal Cannula 08/22/25 16:50 36.4 C L 97 H 18 119/74 99 Nasal Cannula 08/22/25 16:50 Nasal Cannula 08/22/25 16:35 94 H 16 124/76 95 Nasal Cannula 08/22/25 16:25 97 H 17 129/76 96 Nasal Cannula 08/22/25 16:15 36.4 C L 95 H 17 118/81 96 Nasal Cannula 08/22/25 16:05 92 H 17 135/80 96 Nasal Cannula 08/22/25 15:55 91 H 17 141/83 H 98 Oxymask 08/22/25 15:45 87 17 136/81 96 Oxymask 08/22/25 15:38 36.2 C L 87 17 147/85 H 100 Oxymask 08/22/25 10:33 36.6 C 64 20 142/80 H 100 Room Air O2 Flow Rate 08/22/25 18:47 2 08/22/25 18:12 2 08/22/25 17:25 3 08/22/25 16:50 4 08/22/25 16:50 3 08/22/25 16:35 4 08/22/25 16:25 4 08/22/25 16:15 4 08/22/25 16:05 4 08/22/25 15:55 5 08/22/25 15:45 5 08/22/25 15:38 5 08/22/25 10:33 Transfer of Care Handoff Completed per policy Notes Mental Status: alert / awake / arousable Patient Amnestic to Procedure: Yes Nausea / Vomiting: adequately controlled Pain: adequately controlled Airway Patency, RR, SpO2: stable & adequate BP & HR: stable & adequate Hydration State: stable & adequate Anesthetic Complications: no major complications apparent
[2025-08-22] MEDS: TAMSULOSIN HCL 0.4 MG CAP PO SCH (19:38)
[2025-08-22] MEDS: DOCUSATE SODIUM 100 MG CAP PO SCH (20:21)
[2025-08-23 07:06] LABS: Hematocrit (blood only) 36.3 % (42.0-52.0); Hemoglobin 12.2 g/dL (14.0-18.0); Immature Granulocytes # (auto) 0.03 K/uL (0.01-0.20); Immature Granulocytes % (auto) 0.3 %; Mean Corpuscular Hemoglobin 30.5 pg (25.0-34.0); Mean Corpuscular Volume 90.8 fL (80.0-100.0); Platelet Count 182 K/uL (130-400); RDW Standard Deviation 47.5 fL (36.4-46.3); Red Blood Count 4.00 M/uL (4.70-6.10); White Blood Count 10.12 K/ul (4.8-10.8)
[2025-08-23 07:41] LABS: Anion Gap 6.0 (3-11); Blood Urea Nitrogen 20.0 mg/dl (6-23); Calcium 8.5 mg/dl (8.6-10.3); Carbon Dioxide 28.0 mmol/L (21-32); Chloride 106.0 mmol/L (98-107); Creatinine Clr Calc Pharmacy 63.8 ml/min; Glucose 115.0 mg/dl (70-99(Fasting)); Potassium 4.2 mmol/L (3.5-5.1); Sodium 140.0 mmol/L (136-145)
--- NOTE | 2025-08-23 08:07 | Urology Progress Note ---
Date of Service August 23, 2025 Assessment & Plan (1) Renal mass, left: Plan Postop day #1 status post left robotic partial nephrectomy Recovery very much on pace Hemoglobin appropriate Creatinine with a very mild bump which would be expected given the surgery Plan for catheter removal now, potentially drain removal later today I would ideally like to keep him overnight tonight Admission and Anticipated Discharge Date Admission Date: August 22, 2025 Subjective Subjectively doing quite well Has been out of bed No severe pain Tolerating clear liquids without issue, not quite ready to advance his diet Physical Exam Physical Exam: Incisions all appropriate ARIS with serosanguineous, more sanguinous output Urine clear Results & Data Vital Signs (Past 12 Hours) Vital Signs Temp Pulse Resp BP Pulse Ox O2 Del Method 08/23/25 07:26 37 C 76 16 114/65 96 Room Air 08/23/25 07:15 37.1 C 77 18 105/63 97 Room Air 08/23/25 03:54 36.5 C 83 16 108/58 L 95 Room Air 08/22/25 22:37 36.7 C 96 H 16 123/77 96 Room Air PG Care Time/CCT Total # of Minutes Spent Total Time Spent with Patient: Total time spent is greater than 50% in coordination of care (as documented) at patient's floor/unit and/or counseling patient: Coding Level of Care Code None Diagnoses Renal mass, left N28.89
[2025-08-23 23:11] VITALS: RESP 16
[2025-08-24 07:09] LABS: Hematocrit (blood only) 35.2 % (42.0-52.0); Hemoglobin 12.1 g/dL (14.0-18.0); Immature Granulocytes # (auto) 0.04 K/uL (0.01-0.20); Immature Granulocytes % (auto) 0.4 %; Mean Corpuscular Hemoglobin 30.8 pg (25.0-34.0); Mean Corpuscular Volume 89.6 fL (80.0-100.0); Platelet Count 169 K/uL (130-400); RDW Standard Deviation 47.9 fL (36.4-46.3); Red Blood Count 3.93 M/uL (4.70-6.10); White Blood Count 10.50 K/ul (4.8-10.8)
[2025-08-24 07:33] LABS: Anion Gap 5.0 (3-11); Blood Urea Nitrogen 16.0 mg/dl (6-23); Calcium 8.8 mg/dl (8.6-10.3); Carbon Dioxide 27.0 mmol/L (21-32); Chloride 108.0 mmol/L (98-107); Creatinine Clr Calc Pharmacy 70.9 ml/min; Glucose 113.0 mg/dl (70-99(Fasting)); Potassium 3.9 mmol/L (3.5-5.1); Sodium 140.0 mmol/L (136-145)
--- NOTE | 2025-08-24 07:45 | Urology Progress Note ---
Date of Service August 24, 2025 Assessment & Plan (1) Renal mass, left: Plan renal mass, suspected RCC s/p left robotic partial doing great d/c drain dc home cr 1.1 (baseline) hgb stable Admission and Anticipated Discharge Date Admission Date: August 22, 2025 Subjective doing great modest pain ambulatory ready to go home Physical Exam Physical Exam: incisions doing well abd soft patti serous Results & Data Vital Signs (Past 12 Hours) Vital Signs Temp Pulse Resp BP Pulse Ox O2 Del Method 08/23/25 23:10 36.7 C 87 16 142/80 H 94 Room Air PG Care Time/CCT Total # of Minutes Spent Total Time Spent with Patient: Total time spent is greater than 50% in coordination of care (as documented) at patient's floor/unit and/or counseling patient: Coding Level of Care Code None Diagnoses Renal mass, left N28.89
[2025-08-24 07:51] VITALS: BP 134/74; PULSE 84; TEMP 97.7; O2SAT 95
--- NOTE | 2025-08-24 11:01 | Discharge Summary ---
Date of Service August 24, 2025 Admission HPI Per Admitting Provider 69 gentleman, enhancing renal mass in the lower pole, lateral, 50% endophytic/50% exophytic presenting today for robotic left partial nephrectomy Principal Diagnosis left renal mass Discharge Exam Constitutional well developed and well nourished; no acute distress Respiratory normal respiratory effort; no respiratory distress and no labored breathing Gastrointestinal (Abdomen) Inspection/Auscultation: abdomen normal to inspection Musculoskeletal Head/Neck/Chest: normocephalic Skin incisions appropriate Neurologic moves all extremities and awake Psychiatric Orientation: alert and oriented x 3 Discharge Data Allergies Allergy/AdvReac Type Severity Reaction Status Date / Time No Known Allergies Allergy Verified 08/22/25 10:30 Procedures Performed Operation Date: 08/22/25 11:50 Actual Procedures p Robotic Assisted Laparoscopic Left Partial Nephrectomy(Left) - Servando Ortiz MD Hospital Course (1) Renal mass, left: Plan renal mass, suspected RCC s/p left robotic partial doing great d/c drain dc home cr 1.1 (baseline) hgb stable Total Time Total Time Spent Total Time Spent (In Minutes): 25 Discharge Plan Discharge Items Patient Disposition: Home - Self-Care Reason For Visit: Other Specified Disorders of Kidney and Ureter Discharge Diagnosis: Renal Mass Activity: Per Instructions section Lifting: No more than 10 pounds Bathing Comment: Okay to shower, no tub bath or soaking Sexual Activity: Wait until after follow-up appointment Exercise/Sports: Wait until after follow-up appointment Driving/Machine Use: No driving while taking prescription pain medication Non-emergency contact: Surgeon and Urologist Call non-emergency contact if: your pain is not controlled, you have a fever, your temperature is above 101, your wound has increased redness, your wound has increased drainage and your wound pain has increased Follow-up/Referrals: ProDavis MD [Primary Care Provider] - Servando Ortiz MD [Physician] - (THE OFFICE WILL CALL WITH A HOSPITAL FOLLOW UP VISIT.) Diet: Regular Addtl Attending Provider Instructions: Please take all medications as prescribed and keep all follow-ups as scheduled. Please call our office at [phone] with any questions, concerns or need to reschedule appointments for any reason. We are happy to assist you. Recovering at home: We recommend having someone with you for the first few days after surgery to help care for you. It is okay to shower tomorrow. Please avoid swimming, bathing or using hot tub until incisions are well healed. Avoid driving until you are not requiring pain medication any further. Walk at least a few times a day. Increase your distance, as you feel able. Stairs in your home are okay. Please avoid strenuous or sexual activity until your follow-up. We recommend using stool softener (i.e. Colace) to prevent constipation and straining, especially the first two weeks post operatively. Call [facility] at [phone] if you experience: Chest pain or trouble breathing (call 421 or go to the hospital). Fever of 101F or higher Symptoms of infection at incision site, including redness or swelling, warmth, or bad-smelling drainage If you have catheter, and you notice: o Bloody urine or drainage that is dark red or has large clots (Please remember a small amount of blood is normal) o No drainage from the catheter for more than 6 hours o The catheter comes out of your bladder Pain that is not controlled with medicines Pending Studies at Discharge: Yes (pathology) Stand-Alone Forms: My [facility] [employer] Video, Smoking Cessation Medications and DC Order Prescriptions: New oxycodone-acetaminophen [Percocet] 5-325 mg tablet 1 tab PO TID PRN (Reason: pain) Qty: 7 0RF Continued tamsulosin 0.4 mg capsule 0.4 mg PO HS Discharge Orders: Discharge Order (Routine); Ordered 08/24/25 Ordered By: Alexa Milligan/Other Patient Handouts: Nephrectomy Dc Admission Data Admit Date/Time: 08/22/25 15:37 Attending Provider: Servando Ortiz Admit Provider: Servando Ortiz Primary Care Provider: Davis Elizabeth Other Interventions: Discharge Summary Assessment (RN) Last Done: 08/24/25 11:11 Coding Level of Care Code 61842 IN/OBS DISCH 30 MIN/LESS Diagnoses Renal mass, left N28.89
== END 2025-08-24 13:40 | disposition home or self-care (01) | DRG 658 ==
LOC: ASU 10:17 → 3E 15:37